=== PATIENT | male | born 1955 | race Caucasian/White ===

== ENCOUNTER 2017-08-02 12:08 | Emergency (ER) | payer OTHER ==
[~2017-08-02] VITALS: Ht 180.3 cm; Wt 115.0 kg
[2017-08-02 12:26] VITALS: Ht 180.3 cm; Wt 115.0 kg
[2017-08-02] MEDS ORDERED: KETOROLAC 30 MG INJ IV STA (14:44)
[2017-08-02] MEDS ORDERED: CIPROFLOXACIN 500 MG TAB PO ONE (15:00)
[2017-08-02] MEDS ORDERED: CIPR500T4 PO (17:29)
[2017-08-02 18:37] VITALS: BP 139/70; PULSE 77; RESP 16; TEMP 98.1
--- NOTE | 2017-08-02 22:22 | ERD ---
ER Documentation Chief Complaint Chief Complaint HAS A DAVENPORT CATHETER AND HAS SEEN BLOOD IN THE URINE COLLECTION BAG HPI 62-year-old male patient with a past medical history of diabetes and hypertension and Parkinson's disease presents to the ED complaining of a Davenport catheter problem. Reports that he has some blood clots in his Davenport catheter and is unable to urinate. States that he is here for an irrigation. States that he was seen at [facility] for the same symptoms a few days ago. States that he has some hematuria. Reports that he has an appointment to see a urologist on August 30, 2017 for further evaluation and treatment. Denies any chest pain, shortness of breath, nausea, vomiting, diarrhea, abdominal pain , or, chills. Denies any testicular pain, penile discharge. ROS All systems reviewed and are negative except as per history of present illness. Medications Home Meds Active Scripts Ciprofloxacin Hcl* (Ciprofloxacin Hcl*) 500 Mg Tablet, 500 MG PO BID for 10 Days , TAB Prov:MELISSA RAMAN PA-C 08/02/17 Allergies Allergies: Coded Allergies: No Known Allergy (Unverified , 08/02/17) PMhx/Soc History of Surgery: Yes (APPENDECTOMY) Hx Miscellaneous Medical Probl: Yes (HTN, DM, PROSTATE) Hx Alcohol Use: No Hx Substance Use: No Hx Tobacco Use: No Smoking Status: Never smoker Physical Exam Vitals Vital Signs Date Time Temp Pulse Resp B/P Pulse Ox O2 Delivery O2 Flow Rate FiO2 08/02/17 18:37 98.1 77 16 139/70 100 Room Air 08/02/17 12:26 98.5 82 18 117/60 96 Physical Exam Const: [id number], well-nourished. In no acute distress. Head: Atraumatic, normocephalic Eyes: Normal Conjunctiva without injection. No purulent discharge. ENT: Normal external ear, nose. Moist oropharynx without tonsillar exudates. Non -erythematous pharynx. Uvula midline. No drooling. No trismus. Neck: No cervical midline tenderness. Full range of motion. No meningismus. No cervical lymphadenopathy. No JVD. Resp: Clear to auscultation bilaterally. No wheezing, rhonchi, rales, or crackles. No accessory muscle use. No retractions. Cardio: Regular rate and rhythm. No murmurs, rubs or gallops. Abd: Soft, nontender, non distended. Normal bowel sounds. No palpable masses. No rebound tenderness. No guarding. Negative McBurney's point. Negative psoas sign. Negative obturator sign. : Circumcised penis with a Davenport catheter. No tenderness palpation of the bilateral scrotum. No erythema or edema. No warmth to touch. Hematuria noted in the Davenport bag. Skin: No petechiae or rashes Back: No midline tenderness. No CVA tenderness. Ext: No cyanosis, or edema. Neur: Awake and alert. Normal gait. Normal coordination. Psych: Normal Mood and Affect Results 24 hrs Laboratory Tests Test 08/02/17 15:15 White Blood Count 12.010^3/ul Red Blood Count 3.7010^6/ul Hemoglobin 11.5g/dl Hematocrit 35.3% Mean Corpuscular Volume 95.4fl Mean Corpuscular Hemoglobin 31.1pg Mean Corpuscular Hemoglobin Concent 32.6g/dl Red Cell Distribution Width 12.7% Platelet Count 64830^3/UL Mean Platelet Volume 9.9fl Neutrophils % 71.1% Lymphocytes % 17.5% Monocytes % 9.5% Eosinophils % 1.2% Basophils % 0.2% Nucleated Red Blood Cells % 0.0/100WBC Neutrophils # 8.510^3/ul Lymphocytes # 2.110^3/ul Monocytes # 1.110^3/ul Eosinophils # 0.210^3/ul Basophils # 0.010^3/ul Nucleated Red Blood Cells # 0.010^3/ul Sodium Level 141mmol/L Potassium Level 4.2mmol/L Chloride Level 106mmol/L Carbon Dioxide Level 28mmol/L Anion Gap 11 Blood Urea Nitrogen 17mg/dl Creatinine 0.98mg/dl Glucose Level 110mg/dl Calcium Level 9.1mg/dl Current Medications Medications (Trade) Dose Ordered Sig/Nadya Route PRN Reason Start Time Stop Time Status Last Admin Dose Admin Ketorolac Tromethamine (Toradol) 30 mg ONCE STAT IV 08/02/17 14:44 08/02/17 14:47 DC 08/02/17 15:23 Ciprofloxacin (Cipro) 500 mg ONCE ONCE PO 08/02/17 15:00 08/02/17 15:01 DC 08/02/17 15:24 Procedures/MDM 62-year-old male patient with a past medical history of hypertension, diabetes presents to the ED complaining of a Davenport catheter problem. Patient is afebrile and nontoxic-appearing. Patient has normal vital signs. This was discussed with my supervising physician, Dr. Hopper who stated that we can proceed with ordering a urine culture, CBC, BMP. Patient will be treated for urinary tract infection with ciprofloxacin 500 mg here in the ED as well as an outpatient basis for 10 days. Patient was given Toradol here in the ED with improvement of his pain. Patient's Davenport catheter has been irrigated without difficulty. Davenport was just changed by Jimenez a few days ago. CBC: No leukocytosis. No e/o of systemic infection. No e/o anemia. BMP: No e/o severe acidosis, alkalosis, renal failure, diabetic ketoacidosis Low suspicion for testicular torsion, gastritis, GERD, peptic ulcer disease, cholecystitis, choledocholithiasis, cholangitis, pancreatitis, appendicitis, bowel obstruction, ileus, volvulus, nephrolithiasis, pyelonephritis, hepatitis, perforated viscus, diverticulitis, abdominal hernia, acute abdomen, mesenteric ischemia or other emergent conditions. call worker person helped set up patient with home health nurse however patient refused for home health care for Davenport catheter care. Discharge medications: Ciprofloxacin Follow up with primary care physician in 1-2 days. Strictly instructed patient to follow up with urologist on 08/30/17. Instructed patient to return to the ED sooner for any worsening symptoms. Patient's questions were answered. Patient understood and agreed with discharge plan. Patient discharged stable. Departure Diagnosis: Primary Impression: Davenport catheter in place Condition: Stable Patient Instructions: Urinary Tract Infections in Men, Davenport Catheter, Care [facility] Usted se ramirez hecho un examen mdico de control que le indica que no est en cristiano condicin que requiera tratamiento urgente en el Departamento de Emergencia. Un estudio ms profundo y el tratamiento de carlos condicin pueden esperar sin ningn riesgo hasta que usted sea atendida/o en el consultorio de carlos mdico o cristiano cl ami. Es responsabilidad suya arreglar cristiano kingsley para el seguimiento del alisa. MANEJO DE CONDICIONES NO URGENTES EN EL FUTURO 1) Si usted tiene un mdico de atencin primaria: Usted debera llamar a carlos mdico de atencin primaria antes de venir al departamento de emergencia. Despus de las horas de consultorio, carlos doctor o carlos asociado/a est disponible por telfono. El mdico o enfermero de lul en el servicio telefnico puede asesorarle por etelvina medio para atender el problema, o alisa contrario se puede programar cristiano kingsley. 2) Si usted no tiene un mdico de atencin primaria: Llame al mdico o clnica de referencia que aparece abajo anna las horas de consultorio para hacer cristiano kingsley para que le vean. CLINICAS: [facility] [phone] [facility] [phone] [facility] [phone] [facility]. [facility] [phone] [address] [facility]. [facility] [phone] [address] [facility]. [phone] [address] [facility]. [facility] () Usted se ramirez hecho un examen mdico de control que le indica que no est en cristiano condicin que requiera tratamiento urgente en el Departamento de Emergencia. Un estudio ms profundo y el tratamiento de carlos condicin pueden esperar sin ningn riesgo hasta que usted sea atendida/o en el consultorio de carlos mdico o cristiano cl ami. Es responsabilidad suya arreglar cristiano kingsley para el seguimiento del alisa. MANEJO DE CONDICIONES NO URGENTES EN EL FUTURO 1) Si usted tiene un mdico de atencin primaria: Usted debera llamar a carlos mdico de atencin primaria antes de venir al departamento de emergencia. Despus de las horas de consultorio, carlos doctor o carlos asociado/a est disponible por telfono. El mdico o enfermero de lul en el servicio telefnico puede asesorarle por etelvina medio para atender el problema, o alisa contrario se puede programar cristiano kingsley. 2) Si usted no tiene un mdico de atencin primaria: Llame al mdico o condado institucions de referencia que aparece abajo anna las horas de consultorio para hacer cristiano kingsley para que le vean. SI USTED NO PUEDE PAGAR PARA JOEY UN MEDICO puede ir a: [facility] [address] [place] [address] [facility] [address] [place] [address] [facility] [address] [place] [address] PARA ERIN [facility] [address] [place], [place] [id number] [facility] URGENT CARE/SPECIALTIES Additional Instructions: Por favor, obtenga cristiano kingsley anterior de urlogo en los prximos 2-3 mix para obtener ms atencin y tratamiento. Tambin se le darn recursos de enfermera de summer para el cuidado de carlos catter Davenport. Complete todos teresa antibiticos para la infeccin de orina. Visite a carlos mdico maana para un EXAMEN.Regrese a estas instalaciones si no se mejora jasmin esperbamos o jasmin le dijimos. MELISSA RAMAN PA-C Aug 02, 2017 22:22 MELISSA RAMAN PA-C Aug 02, 2017 22:22
--- NOTE | 2017-08-02 22:22 | ERD ---
ER Documentation Chief Complaint Chief Complaint HAS A DAVENPORT CATHETER AND HAS SEEN BLOOD IN THE URINE COLLECTION BAG HPI 62-year-old male patient with a past medical history of diabetes and hypertension and Parkinson's disease presents to the ED complaining of a Davenport catheter problem. Reports that he has some blood clots in his Davenport catheter and is unable to urinate. States that he is here for an irrigation. States that he was seen at [facility] for the same symptoms a few days ago. States that he has some hematuria. Reports that he has an appointment to see a urologist on August 30, 2017 for further evaluation and treatment. Denies any chest pain, shortness of breath, nausea, vomiting, diarrhea, abdominal pain , or, chills. Denies any testicular pain, penile discharge. ROS All systems reviewed and are negative except as per history of present illness. Medications Home Meds Active Scripts Ciprofloxacin Hcl* (Ciprofloxacin Hcl*) 500 Mg Tablet, 500 MG PO BID for 10 Days , TAB Prov:MELISSA RAMAN PA-C 08/02/17 Allergies Allergies: Coded Allergies: No Known Allergy (Unverified , 08/02/17) PMhx/Soc History of Surgery: Yes (APPENDECTOMY) Hx Miscellaneous Medical Probl: Yes (HTN, DM, PROSTATE) Hx Alcohol Use: No Hx Substance Use: No Hx Tobacco Use: No Smoking Status: Never smoker Physical Exam Vitals Vital Signs Date Time Temp Pulse Resp B/P Pulse Ox O2 Delivery O2 Flow Rate FiO2 08/02/17 18:37 98.1 77 16 139/70 100 Room Air 08/02/17 12:26 98.5 82 18 117/60 96 Physical Exam Const: [id number], well-nourished. In no acute distress. Head: Atraumatic, normocephalic Eyes: Normal Conjunctiva without injection. No purulent discharge. ENT: Normal external ear, nose. Moist oropharynx without tonsillar exudates. Non -erythematous pharynx. Uvula midline. No drooling. No trismus. Neck: No cervical midline tenderness. Full range of motion. No meningismus. No cervical lymphadenopathy. No JVD. Resp: Clear to auscultation bilaterally. No wheezing, rhonchi, rales, or crackles. No accessory muscle use. No retractions. Cardio: Regular rate and rhythm. No murmurs, rubs or gallops. Abd: Soft, nontender, non distended. Normal bowel sounds. No palpable masses. No rebound tenderness. No guarding. Negative McBurney's point. Negative psoas sign. Negative obturator sign. : Circumcised penis with a Davenport catheter. No tenderness palpation of the bilateral scrotum. No erythema or edema. No warmth to touch. Hematuria noted in the Davenport bag. Skin: No petechiae or rashes Back: No midline tenderness. No CVA tenderness. Ext: No cyanosis, or edema. Neur: Awake and alert. Normal gait. Normal coordination. Psych: Normal Mood and Affect Results 24 hrs Laboratory Tests Test 08/02/17 15:15 White Blood Count 12.010^3/ul Red Blood Count 3.7010^6/ul Hemoglobin 11.5g/dl Hematocrit 35.3% Mean Corpuscular Volume 95.4fl Mean Corpuscular Hemoglobin 31.1pg Mean Corpuscular Hemoglobin Concent 32.6g/dl Red Cell Distribution Width 12.7% Platelet Count 64106^3/UL Mean Platelet Volume 9.9fl Neutrophils % 71.1% Lymphocytes % 17.5% Monocytes % 9.5% Eosinophils % 1.2% Basophils % 0.2% Nucleated Red Blood Cells % 0.0/100WBC Neutrophils # 8.510^3/ul Lymphocytes # 2.110^3/ul Monocytes # 1.110^3/ul Eosinophils # 0.210^3/ul Basophils # 0.010^3/ul Nucleated Red Blood Cells # 0.010^3/ul Sodium Level 141mmol/L Potassium Level 4.2mmol/L Chloride Level 106mmol/L Carbon Dioxide Level 28mmol/L Anion Gap 11 Blood Urea Nitrogen 17mg/dl Creatinine 0.98mg/dl Glucose Level 110mg/dl Calcium Level 9.1mg/dl Current Medications Medications (Trade) Dose Ordered Sig/Nadya Route PRN Reason Start Time Stop Time Status Last Admin Dose Admin Ketorolac Tromethamine (Toradol) 30 mg ONCE STAT IV 08/02/17 14:44 08/02/17 14:47 DC 08/02/17 15:23 Ciprofloxacin (Cipro) 500 mg ONCE ONCE PO 08/02/17 15:00 08/02/17 15:01 DC 08/02/17 15:24 Procedures/MDM 62-year-old male patient with a past medical history of hypertension, diabetes presents to the ED complaining of a Davenport catheter problem. Patient is afebrile and nontoxic-appearing. Patient has normal vital signs. This was discussed with my supervising physician, Dr. Hopper who stated that we can proceed with ordering a urine culture, CBC, BMP. Patient will be treated for urinary tract infection with ciprofloxacin 500 mg here in the ED as well as an outpatient basis for 10 days. Patient was given Toradol here in the ED with improvement of his pain. Patient's Davenport catheter has been irrigated without difficulty. Davenport was just changed by Jimenez a few days ago. CBC: No leukocytosis. No e/o of systemic infection. No e/o anemia. BMP: No e/o severe acidosis, alkalosis, renal failure, diabetic ketoacidosis Low suspicion for testicular torsion, gastritis, GERD, peptic ulcer disease, cholecystitis, choledocholithiasis, cholangitis, pancreatitis, appendicitis, bowel obstruction, ileus, volvulus, nephrolithiasis, pyelonephritis, hepatitis, perforated viscus, diverticulitis, abdominal hernia, acute abdomen, mesenteric ischemia or other emergent conditions. oncology social worker helped set up patient with home health nurse however patient refused for home health care for Davenport catheter care. Discharge medications: Ciprofloxacin Follow up with primary care physician in 1-2 days. Strictly instructed patient to follow up with urologist on 08/30/17. Instructed patient to return to the ED sooner for any worsening symptoms. Patient's questions were answered. Patient understood and agreed with discharge plan. Patient discharged stable. Departure Diagnosis: Primary Impression: Davenport catheter in place Condition: Stable Patient Instructions: Urinary Tract Infections in Men, Davenport Catheter, Care Referrals: [facility] Usted se ramirez hecho un examen mdico de control que le indica que no est en cristiano condicin que requiera tratamiento urgente en el Departamento de Emergencia. Un estudio ms profundo y el tratamiento de carlos condicin pueden esperar sin ningn riesgo hasta que usted sea atendida/o en el consultorio de carlos mdico o cristiano cl ami. Es responsabilidad suya arreglar cristiano kingsley para el seguimiento del alisa. MANEJO DE CONDICIONES NO URGENTES EN EL FUTURO 1) Si usted tiene un mdico de atencin primaria: Usted debera llamar a carlos mdico de atencin primaria antes de venir al departamento de emergencia. Despus de las horas de consultorio, carlos doctor o carlos asociado/a est disponible por telfono. El mdico o enfermero de lul en el servicio telefnico puede asesorarle por etelvina medio para atender el problema, o alisa contrario se puede programar cristiano kingsley. 2) Si usted no tiene un mdico de atencin primaria: Llame al mdico o clnica de referencia que aparece abajo anna las horas de consultorio para hacer cristiano kingsley para que le vean. CLINICAS: [facility] [phone] [facility] [phone] [facility] [phone] [address] [facility] [phone] [address] [facility]. [facility] [phone] [address] [facility]. [phone] [facility]. [facility] () Usted se ramirez hecho un examen mdico de control que le indica que no est en cristiano condicin que requiera tratamiento urgente en el Departamento de Emergencia. Un estudio ms profundo y el tratamiento de carlos condicin pueden esperar sin ningn riesgo hasta que usted sea atendida/o en el consultorio de carlos mdico o cristiano cl ami. Es responsabilidad suya arreglar cristiano kingsley para el seguimiento del alisa. MANEJO DE CONDICIONES NO URGENTES EN EL FUTURO 1) Si usted tiene un mdico de atencin primaria: Usted debera llamar a carlos mdico de atencin primaria antes de venir al departamento de emergencia. Despus de las horas de consultorio, carlos doctor o carlos asociado/a est disponible por telfono. El mdico o enfermero de lul en el servicio telefnico puede asesorarle por etelvina medio para atender el problema, o alisa contrario se puede programar cristiano kingsley. 2) Si usted no tiene un mdico de atencin primaria: Llame al mdico o condado institucions de referencia que aparece abajo anna las horas de consultorio para hacer cristiano kingsley para que le vean. SI USTED NO PUEDE PAGAR PARA JOEY UN MEDICO puede ir a: [facility] [address] [place] [address] [facility] [address] [place] [address] [facility] [address] [place] [address] PARA ERIN [facility] [address] [place], [place] [id number] [facility] U[facility]ENT CARE/SPECIALTIES Additional Instructions: Por favor, obtenga cristiano kingsley anterior de urlogo en los prximos 2-3 mix para obtener ms atencin y tratamiento. Tambin se le darn recursos de enfermera de summer para el cuidado de carlos catter Davenport. Complete todos teresa antibiticos para la infeccin de orina. Visite a carlos mdico maana para un EXAMEN.Regrese a estas instalaciones si no se mejora jasmin esperbamos o jasmin le dijimos. MELISSA RAMAN PA-C Aug 02, 2017 22:22 MELISSA RAMAN PA-C Aug 02, 2017 22:22
--- NOTE | 2017-08-02 22:22 | ERD ---
ER Documentation Chief Complaint Chief Complaint HAS A DAVENPORT CATHETER AND HAS SEEN BLOOD IN THE URINE COLLECTION BAG HPI 62-year-old male patient with a past medical history of diabetes and hypertension and Parkinson's disease presents to the ED complaining of a Davenport catheter problem. Reports that he has some blood clots in his Davenport catheter and is unable to urinate. States that he is here for an irrigation. States that he was seen at [facility] for the same symptoms a few days ago. States that he has some hematuria. Reports that he has an appointment to see a urologist on August 30, 2017 for further evaluation and treatment. Denies any chest pain, shortness of breath, nausea, vomiting, diarrhea, abdominal pain , or, chills. Denies any testicular pain, penile discharge. ROS All systems reviewed and are negative except as per history of present illness. Medications Home Meds Active Scripts Ciprofloxacin Hcl* (Ciprofloxacin Hcl*) 500 Mg Tablet, 500 MG PO BID for 10 Days , TAB Prov:MELISSA RAMAN PA-C 08/02/17 Allergies Allergies: Coded Allergies: No Known Allergy (Unverified , 08/02/17) PMhx/Soc History of Surgery: Yes (APPENDECTOMY) Hx Miscellaneous Medical Probl: Yes (HTN, DM, PROSTATE) Hx Alcohol Use: No Hx Substance Use: No Hx Tobacco Use: No Smoking Status: Never smoker Physical Exam Vitals Vital Signs Date Time Temp Pulse Resp B/P Pulse Ox O2 Delivery O2 Flow Rate FiO2 08/02/17 18:37 98.1 77 16 139/70 100 Room Air 08/02/17 12:26 98.5 82 18 117/60 96 Physical Exam Const: [id number]-zjj-bvyerfqps, well-nourished. In no acute distress. Head: Atraumatic, normocephalic Eyes: Normal Conjunctiva without injection. No purulent discharge. ENT: Normal external ear, nose. Moist oropharynx without tonsillar exudates. Non -erythematous pharynx. Uvula midline. No drooling. No trismus. Neck: No cervical midline tenderness. Full range of motion. No meningismus. No cervical lymphadenopathy. No JVD. Resp: Clear to auscultation bilaterally. No wheezing, rhonchi, rales, or crackles. No accessory muscle use. No retractions. Cardio: Regular rate and rhythm. No murmurs, rubs or gallops. Abd: Soft, nontender, non distended. Normal bowel sounds. No palpable masses. No rebound tenderness. No guarding. Negative McBurney's point. Negative psoas sign. Negative obturator sign. : Circumcised penis with a Davenport catheter. No tenderness palpation of the bilateral scrotum. No erythema or edema. No warmth to touch. Hematuria noted in the Davenport bag. Skin: No petechiae or rashes Back: No midline tenderness. No CVA tenderness. Ext: No cyanosis, or edema. Neur: Awake and alert. Normal gait. Normal coordination. Psych: Normal Mood and Affect Results 24 hrs Laboratory Tests Test 08/02/17 15:15 White Blood Count 12.010^3/ul Red Blood Count 3.7010^6/ul Hemoglobin 11.5g/dl Hematocrit 35.3% Mean Corpuscular Volume 95.4fl Mean Corpuscular Hemoglobin 31.1pg Mean Corpuscular Hemoglobin Concent 32.6g/dl Red Cell Distribution Width 12.7% Platelet Count 84816^3/UL Mean Platelet Volume 9.9fl Neutrophils % 71.1% Lymphocytes % 17.5% Monocytes % 9.5% Eosinophils % 1.2% Basophils % 0.2% Nucleated Red Blood Cells % 0.0/100WBC Neutrophils # 8.510^3/ul Lymphocytes # 2.110^3/ul Monocytes # 1.110^3/ul Eosinophils # 0.210^3/ul Basophils # 0.010^3/ul Nucleated Red Blood Cells # 0.010^3/ul Sodium Level 141mmol/L Potassium Level 4.2mmol/L Chloride Level 106mmol/L Carbon Dioxide Level 28mmol/L Anion Gap 11 Blood Urea Nitrogen 17mg/dl Creatinine 0.98mg/dl Glucose Level 110mg/dl Calcium Level 9.1mg/dl Current Medications Medications (Trade) Dose Ordered Sig/Nadya Route PRN Reason Start Time Stop Time Status Last Admin Dose Admin Ketorolac Tromethamine (Toradol) 30 mg ONCE STAT IV 08/02/17 14:44 08/02/17 14:47 DC 08/02/17 15:23 Ciprofloxacin (Cipro) 500 mg ONCE ONCE PO 08/02/17 15:00 08/02/17 15:01 DC 08/02/17 15:24 Procedures/MDM 62-year-old male patient with a past medical history of hypertension, diabetes presents to the ED complaining of a Davenport catheter problem. Patient is afebrile and nontoxic-appearing. Patient has normal vital signs. This was discussed with my supervising physician, Dr. Hopper who stated that we can proceed with ordering a urine culture, CBC, BMP. Patient will be treated for urinary tract infection with ciprofloxacin 500 mg here in the ED as well as an outpatient basis for 10 days. Patient was given Toradol here in the ED with improvement of his pain. Patient's Davenport catheter has been irrigated without difficulty. Davenport was just changed by Jimenez a few days ago. CBC: No leukocytosis. No e/o of systemic infection. No e/o anemia. BMP: No e/o severe acidosis, alkalosis, renal failure, diabetic ketoacidosis Low suspicion for testicular torsion, gastritis, GERD, peptic ulcer disease, cholecystitis, choledocholithiasis, cholangitis, pancreatitis, appendicitis, bowel obstruction, ileus, volvulus, nephrolithiasis, pyelonephritis, hepatitis, perforated viscus, diverticulitis, abdominal hernia, acute abdomen, mesenteric ischemia or other emergent conditions. plate worker helped set up patient with home health nurse however patient refused for home health care for Davenport catheter care. Discharge medications: Ciprofloxacin Follow up with primary care physician in 1-2 days. Strictly instructed patient to follow up with urologist on 08/30/17. Instructed patient to return to the ED sooner for any worsening symptoms. Patient's questions were answered. Patient understood and agreed with discharge plan. Patient discharged stable. Departure Diagnosis: Primary Impression: Davenport catheter in place Condition: Stable Patient Instructions: Urinary Tract Infections in Men, Davenport Catheter, Care [facility] Usted se ramirez hecho un examen mdico de control que le indica que no est en cristiano condicin que requiera tratamiento urgente en el Departamento de Emergencia. Un estudio ms profundo y el tratamiento de carlos condicin pueden esperar sin ningn riesgo hasta que usted sea atendida/o en el consultorio de carlos mdico o cristiano cl ami. Es responsabilidad suya arreglar cristiano kingsley para el seguimiento del alisa. MANEJO DE CONDICIONES NO URGENTES EN EL FUTURO 1) Si usted tiene un mdico de atencin primaria: Usted debera llamar a carlos mdico de atencin primaria antes de venir al departamento de emergencia. Despus de las horas de consultorio, carlos doctor o carlos asociado/a est disponible por telfono. El mdico o enfermero de lul en el servicio telefnico puede asesorarle por etelvina medio para atender el problema, o alisa contrario se puede programar cristiano kingsley. 2) Si usted no tiene un mdico de atencin primaria: Llame al mdico o clnica de referencia que aparece abajo anna las horas de consultorio para hacer cristiano kingsley para que le vean. CLINICAS: [facility] [phone] [facility] [phone] [facility] [phone] [address] [facility]. [facility] [phone] [address] [facility]. [facility] [phone] [address] [facility]. [phone] [address] [facility]. [facility] () Usted se ramirez hecho un examen mdico de control que le indica que no est en cristiano condicin que requiera tratamiento urgente en el Departamento de Emergencia. Un estudio ms profundo y el tratamiento de carlos condicin pueden esperar sin ningn riesgo hasta que usted sea atendida/o en el consultorio de carlos mdico o cristiano cl ami. Es responsabilidad suya arreglar cristiano kingsley para el seguimiento del alisa. MANEJO DE CONDICIONES NO URGENTES EN EL FUTURO 1) Si usted tiene un mdico de atencin primaria: Usted debera llamar a carlos mdico de atencin primaria antes de venir al departamento de emergencia. Despus de las horas de consultorio, carlos doctor o carlos asociado/a est disponible por telfono. El mdico o enfermero de lul en el servicio telefnico puede asesorarle por etelvina medio para atender el problema, o alisa contrario se puede programar cristiano kingsley. 2) Si usted no tiene un mdico de atencin primaria: Llame al mdico o condado institucions de referencia que aparece abajo anna las horas de consultorio para hacer cristiano kingsley para que le vean. SI USTED NO PUEDE PAGAR PARA JOEY UN MEDICO puede ir a: [facility] [address] [place] [address] [facility] [address] [place] [address] [facility] [address] [place] [address] PARA [facility] [address] [place], [place] [id number] [facility] URGENT CARE/SPECIALTIES Additional Instructions: Por favor, obtenga cristiano kingsley anterior de urlogo en los prximos 2-3 mix para obtener ms atencin y tratamiento. Tambin se le darn recursos de enfermera de summer para el cuidado de carlos catter Davenport. Complete todos teresa antibiticos para la infeccin de orina. Visite a carlos mdico maana para un EXAMEN.Regrese a estas instalaciones si no se mejora jasmin esperbamos o jasmin le dijimos. MELISSA RAMAN PA-C Aug 02, 2017 22:22 MELISSA RAMAN PA-C Aug 02, 2017 22:22
== END 2017-08-02 18:20 | disposition home or self-care (01) ==
LOC: FTE 12:08
DX: R33.9 Retention of urine, unspecified (principal); I10 Essential (primary) hypertension; E11.9 Type 2 diabetes mellitus without complications; G20 Parkinson's disease; Z46.6 Encounter for fitting and adjustment of urinary device
CPT/HCPCS: 36415; 80048; 85025; 87086; 96374; J1885; Z7502; Z7610

== ENCOUNTER 2017-12-19 19:07 | Emergency (ER) | END 2017-12-19 21:30 | disposition home or self-care (01) ==

== ENCOUNTER 2018-01-29 16:19 | Emergency (ER) | END 2018-01-29 20:27 | disposition home or self-care (01) ==

== ENCOUNTER 2018-03-06 17:26 | Emergency (ER) | END 2018-03-06 22:57 | disposition home or self-care (01) ==

== ENCOUNTER 2018-10-18 18:41 | Emergency (ER) | payer OTHER ==
[~2018-10-18] VITALS: Ht 175.3 cm; Wt 122.4 kg
[~2018-10-18 18:41] MED LIST: ACET500C5 PO; ALBU8.5H8 INH; AMLO-147 PO; ATEN-51 PO; AZIT250T PO; BENZ-6 PO; CEPH-443 PO; CETI10CA PO; CIPR500T4 PO; IBUP-1542 PO; METF500T24 PO; NITR-58 PO
[2018-10-18 19:22] VITALS: BP 173/83; PULSE 65; RESP 18; Ht 175.3 cm; Wt 122.4 kg
[2018-10-18] MEDS ORDERED: BACITRACIN 0.9 GM OINT TOP ONE (23:00)
[2018-10-18] MEDS ORDERED: DIPHTH/TET/ACEL PERTUSS (ADULT) 0.5 ML VIAL IM* ONE (23:00)
[2018-10-18] MEDS ORDERED: METR500T PO (23:59)
[2018-10-18] MEDS ORDERED: SULF1TAB31 PO (23:59)
--- NOTE | 2018-10-19 02:07 | ERD ---
ER Documentation Chief Complaint Chief Complaint pinpoint bite today by dog on his R lower leg near the ankle HPI 63-year-old male patient with a past medical history of prediabetes, hypert ension presents to the ED complaining of a dog bite that occurred on his right lower leg. Patient reports that it is slightly painful. Reports that he still able to walk without any difficulty. States that he was told that the dog was updated with his rabies vaccine. Denies any loss of sensation, loss of range of motion, increased redness, swelling, fever, chills. ROS All systems reviewed and are negative except as per history of present illness. Medications Home Meds Active Scripts Metronidazole* (Flagyl*) 500 Mg Tablet, 500 MG PO TID for 10 Days, TAB Prov:MELISSA RAMAN PA-C 10/18/18 Sulfamethoxazole/Trimethoprim* (Bactrim Ds* Tablet) 1 Each Tablet, 1 TAB PO DAILY for 10 Days, TAB Prov:MELISSA RAMAN PA-C 10/18/18 Nitrofurantoin Monohyd Macrocr* (Macrobid*) 100 Mg Capsr, 100 MG PO BID for 14 Days, CAP Prov:RADHA BOATENG MD 03/06/18 Cephalexin* (Keflex*) 500 Mg Capsule, 500 MG PO QID for 14 Days, CAP Prov:DAIANA JARA MD 01/29/18 Ibuprofen* (Motrin*) 600 Mg Tab, 600 MG PO Q6H PRN for PAIN AND OR ELEVATED TEMP, #30 TAB Prov:ILSA BARBA NP 12/19/17 Acetaminophen* (Tylophen*) 500 Mg Capsule, 1 CAP PO Q6H PRN for PAIN AND OR ELEVATED TEMP, #20 CAP Prov:ILSA BARBA NP 12/19/17 Albuterol Sulfate* (Proair HFA*) 8.5 Gm Hfa.aer.ad, 2 PUFF INH Q4H PRN for WHEEZING AND SOB, #1 INHALER Prov:ILSA BARBA NP 12/19/17 Cetirizine Hcl* (Zyrtec*) 10 Mg Capsule, 10 MG PO DAILY, #30 TAB.CHEW Prov:ILSA BARBA NP 12/19/17 Azithromycin* (Zithromax*) 250 Mg Tablet, 250 MG PO DAILY for 4 Days, TAB Prov:EMILY BARBALizeth Bauman MAINTENANCE DEPARTMENT MANAGER 12/19/17 Benzonatate* (Tessalon Perle*) 100 Mg Capsule, 100 MG PO Q8H PRN for COUGH, #20 CAP Prov:ILSA BARBA DANDRE Bauman MAINTENANCE DEPARTMENT MANAGER 12/19/17 Ciprofloxacin Hcl* (Ciprofloxacin Hcl*) 500 Mg Tablet, 500 MG PO BID for 10 Days, TAB Prov:MELISSA RAMAN PA-C 08/02/17 Reported Medications Metformin Hcl* (Metformin Hcl*) Unknown Strength Tablet, PO WITH BREAKFAST DINNE, #60 TAB 12/19/17 Atenolol* (Atenolol*) Unknown Strength Tablet, PO DAILY, #30 TAB 12/19/17 Amlodipine Besylate* (Amlodipine Besylate*) Unknown Strength Tablet, PO DAILY, #30 TAB 12/19/17 Allergies Allergies: Coded Allergies: Iodine and Iodide Containing Produc (Verified Allergy, Unknown, 10/18/18) Penicillins (Verified Allergy, Unknown, 10/18/18) PMhx/Soc History of Surgery: Yes (APPENDECTOMY) Hx Cardiac Disorders: Yes (HTN, hyperlipidemia) Hx Miscellaneous Medical Probl: Yes (pre-DM, PROSTATE, Kidney stones) Hx Alcohol Use: No Hx Substance Use: No Hx Tobacco Use: No Smoking Status: Never smoker Physical Exam Vitals Vital Signs Date Temp Pulse Resp B/P (MAP) Pulse Ox O2 O2 Flow FiO2 Time Delivery Rate 10/18/18 98.4 65 18 173/83 95 19:22 (113) Physical Exam Const: [id number], well-nourished. In no acute distress. Head: Atraumatic, normocephalic Eyes: Normal Conjunctiva without injection ENT: Normal external ear, nose and mouth. Neck: Full range of motion. No meningismus. Resp: Clear to auscultation bilaterally. No wheezing, rhonchi, rales, or crackles. No accessory muscle use. No retractions. Cardio: Regular rate and rhythm, no murmurs Skin: No petechiae or rashes Back: No midline tenderness. No CVA tenderness. Ext: No cyanosis, or edema. Cap refill less than 2 seconds. Distal pulses intact bilaterally. Pinpoint lesion noted on the right lower extremity. No edema noted. Slight erythema noted. No ecchymosis. No fluctuance or induration. Full range of motion of bilateral lower extremities. Neur: Awake and alert. Normal gait and coordination. Muscle strength 5/5. Sensation intact bilaterally. Psych: Normal Mood and Affect Results 24 hrs Current Medications Medications Dose Sig/Nadya Start Time Status Last (Trade) Ordered Route PRN Stop Time Admin Dose Reason Admin Bacitracin 1 applic ONCE ONCE 10/18/18 DC 10/18/18 (Bacitracin TOP 23:00 10/18/18 22:58 Oint (Ud)) 23:01 Diphtheria/ 0.5 ml ONCE ONCE 10/18/18 DC 10/18/18 Tetanus/Acell IM* 23:00 10/18/18 22:58 Pertussis 23:01 (Adacel) Procedures/MDM 63-year-old male patient with no significant past medical history presents to the ED complaining of diabetes, hypertension. Patient is afebrile and nontoxic- appearing. Patient's blood pressure is 173/83. Blood Pressure Assessment: Patient's blood pressure was elevated (>120/80) but appears stable without evidence of hypertension emergency or urgency. The patient was counseled about the risks of hypertension and urged to pursue outpatient monitoring and therapy within a week with their primary care physician. Wound care given to patient. Patient's wound clean with normal saline. Patient sustained a punctate dog bite. Since patient is allergic to penicillin, discussed with Star, pharmacist and patient can be placed on Bactrim to cover for Pasteurella as well as metronidazole for anaerobic coverage. Patient is appropriate for outpatient management. Patient have a wound check in 2 days. Low suspicion for anaphylaxis, scabies, SJS/TEN, TSS, Lyme's Disease, syphilis, RMSF, shingles, disseminated gonorrhea chlamydia, DIC, TTP, ITP, erythema multiforme, sepsis, cellulitis, necrotizing fasciitis, gangrene, meningococcemia, allergic contact dermatitis, urticaria, eczema, tinea infection, or other emergent conditions. Diagnosis: Dog bite Discharge medications: Flagyl, Bactrim Follow up with primary care physician in 1-2 days. Instructed patient to return to the ED sooner for any worsening symptoms. Patient's questions were answered. Patient is hemodynamically stable. Patient understood and agreed with discharge plan. Patient discharged stable. Disclaimer: Inadvertent spelling and grammatical errors are likely due to EHR/dictation software use and do not reflect on the overall quality of patient care. Also, please note that the electronic time recorded on this note does not necessarily reflect the actual time of the patient encounter. Departure Diagnosis: Primary Impression: Dog bite Encounter type: initial encounter Qualified Codes: W54.0XXA - Bitten by dog, initial encounter Condition: Stable Patient Instructions: Dog Bite Referrals: [facility] YOU HAVE RECEIVED A MEDICAL SCREENING EXAM AND THE RESULTS INDICATE THAT YOU DO NOT HAVE A CONDITION THAT REQUIRES URGENT TREATMENT IN THE EMERGENCY DEPARTMENT. FURTHER EVALUATION AND TREATMENT OF YOUR CONDITION CAN WAIT UNTIL YOU ARE SEEN IN YOUR DOCTORS OFFICE WITHIN THE NEXT 1-2 DAYS. IT IS YOUR RESPONSIBILITY TO MAKE AN APPOINTMENT FOR FOLOW-UP CARE. IF YOU HAVE A PRIMARY DOCTOR --you should call your primary doctor and schedule an appointment IF YOU DO NOT HAVE A PRIMARY DOCTOR YOU CAN CALL OUR PHYSICIAN REFERRAL HOTLINE AT IF YOU CAN NOT AFFORD TO SEE A PHYSICIAN YOU CAN CHOSE FROM THE FOLLOWING [facility] [address] [facility]. [facility] [address] [facility] [facility] [address] [facility] [address] [facility] [address] [facility]. [facility]. [address] [facility]. [facility] YOU HAVE RECEIVED A MEDICAL SCREENING EXAM AND THE RESULTS INDICATE THAT YOU DO NOT HAVE A CONDITION THAT REQUIRES URGENT TREATMENT IN THE EMERGENCY DEPARTMENT. FURTHER EVALUATION AND TREATMENT OF YOUR CONDITION CAN WAIT UNTIL YOU ARE SEEN I N YOUR DOCTORS OFFICE WITHIN THE NEXT 1-2 DAYS. IT IS YOUR RESPONSIBILITY TO MAKE AN APPOINTMENT FOR FOLOW-UP CARE. IF YOU HAVE A PRIMARY DOCTOR --you should call your primary doctor and schedule and appointment IF YOU DO NOT HAVE A PRIMARY DOCTOR YOU CAN CALL OUR PHYSICIAN REFERRAL HOTLINE AT . IF YOU CAN NOT AFFORD TO SEE A PHYSICIAN YOU CAN CHOSE FROM THE FOLLOWING [facility] INSTITUTIONS: [facility] [address] [place] [address] [facility] [address] [place] [address] [facility] [address] [place] [address] [facility] URGENT CARE/SPECIALTIES Additional Instructions: Call your primary care doctor TOMORROW for an appointment during the next 2-3 days.See the doctor sooner or return here if your condition worsens before your appointment time. Follow up in 2 days in your clinic for wound check. MELISSA RAMAN PA-C Oct 19, 2018 02:07
== END 2018-10-19 00:09 | disposition home or self-care (01) ==
LOC: FTE 18:41
DX: S81.851A Open bite, right lower leg, initial encounter (principal); I10 Essential (primary) hypertension; W54.0XXA Bitten by dog, initial encounter; Y92.9 Unspecified place or not applicable; Z23 Encounter for immunization; Z79.84 Long term (current) use of oral hypoglycemic drugs
CPT/HCPCS: 90471; 90715; Z7502; Z7610

== ENCOUNTER 2018-12-09 18:53 | Emergency (ER) | payer OTHER ==
[~2018-12-09] VITALS: Ht 175.3 cm; Wt 121.7 kg
[~2018-12-09 18:53] MED LIST changes: +METR500T PO; +SULF1TAB31 PO
[2018-12-09 19:44] VITALS: Ht 175.3 cm; Wt 121.7 kg
[2018-12-10] MEDS ORDERED: CIPR500T4 PO (01:27)
--- NOTE | 2018-12-10 02:18 | ERD ---
ER Documentation Chief Complaint Chief Complaint dysuria x1 week. denies blood in urine HPI Patient is a 63-year-old male with a past medical history of Parkinson's disease, hypertension, DM type II, who presents the ER for concerns of dysuria times 1 week. Patient denies any hematuria. Patient denies any fevers or chills. Patient denies abdominal pain. Patient denies any chest pain, shortness breath, nausea, vomiting or diarrhea. Patient states he recently did have a UTI and he was taking "Munorol." ROS All systems reviewed and are negative except as per history of present illness. Medications Home Meds Active Scripts Ciprofloxacin Hcl* (Ciprofloxacin Hcl*) 500 Mg Tablet, 500 MG PO BID for 10 Days, TAB Prov:VINCE JACOBSON PA-C 12/10/18 Metronidazole* (Flagyl*) 500 Mg Tablet, 500 MG PO TID for 10 Days, TAB Prov:MELISSA RAMAN PA-C 10/18/18 Sulfamethoxazole/Trimethoprim* (Bactrim Ds* Tablet) 1 Each Tablet, 1 TAB PO YONATHAN LY for 10 Days, TAB Prov:MELISSA RAMAN PA-C 10/18/18 Nitrofurantoin Monohyd Macrocr* (Macrobid*) 100 Mg Capsr, 100 MG PO BID for 14 Days, CAP Prov:RADHA BOATENG MD 03/06/18 Cephalexin* (Keflex*) 500 Mg Capsule, 500 MG PO QID for 14 Days, CAP Prov:DAIANA JARA MD 01/29/18 Ibuprofen* (Motrin*) 600 Mg Tab, 600 MG PO Q6H PRN for PAIN AND OR ELEVATED TEMP, #30 TAB Prov:ILSA BARBA NP 12/19/17 Acetaminophen* (Tylophen*) 500 Mg Capsule, 1 CAP PO Q6H PRN for PAIN AND OR ELEVATED TEMP, #20 CAP Prov:ILSA BARBA NP 12/19/17 Albuterol Sulfate* (Proair HFA*) 8.5 Gm Hfa.aer.ad, 2 PUFF INH Q4H PRN for WHEEZING AND SOB, #1 INHALER Prov:ILSA BARBA NP 12/19/17 Cetirizine Hcl* (Zyrtec*) 10 Mg Capsule, 10 MG PO DAILY, #30 TAB.CHEW Prov:ILSA BARBA MAE [employer] 12/19/17 Azithromycin* (Zithromax*) 250 Mg Tablet, 250 MG PO DAILY for 4 Days, TAB Prov:ILSA BARBA. [employer] SERV[employer]OCIATE 12/19/17 Benzonatate* (Tessalon Perle*) 100 Mg Capsule, 100 MG PO Q8H PRN for COUGH, #20 CAP Prov:ILSA BARBA DANDRE Montelongo. [employer] SERVICE ASSOCIATE 12/19/17 Ciprofloxacin Hcl* (Ciprofloxacin Hcl*) 500 Mg Tablet, 500 MG PO BID for 10 Days, TAB Prov:MELISSA RAMAN PA-C 08/02/17 Reported Medications Metformin Hcl* (Metformin Hcl*) Unknown Strength Tablet, PO WITH BREAKFAST DINNE, #60 TAB 12/19/17 Atenolol* (Atenolol*) Unknown Strength Tablet, PO DAILY, #30 TAB 12/19/17 Amlodipine Besylate* (Amlodipine Besylate*) Unknown Strength Tablet, PO DAILY, #30 TAB 12/19/17 Allergies Allergies: Coded Allergies: Iodine and Iodide Containing Produc (Verified Allergy, Unknown, 10/18/18) Penicillins (Verified Allergy, Unknown, 10/18/18) PMhx/Soc History of Surgery: Yes (APPENDECTOMY) Hx Cardiac Disorders: Yes (HTN, hyperlipidemia) Hx Miscellaneous Medical Probl: Yes (DM, PROSTATE, Kidney stones, parkinson's) Hx Alcohol Use: No Hx Substance Use: No Hx Tobacco Use: No Smoking Status: Never smoker FmHx Family History: No diabetes Physical Exam Vitals Vital Signs Date Temp Pulse Resp B/P (MAP) Pulse Ox O2 O2 Flow FiO2 Time Delivery Rate 12/09/18 98.0 94 16 163/74 97 19:44 (103) Physical Exam GENERAL: Well-developed, well-nourished male. Appears in no acute distress. Speaking in full sentences. HEAD: Normocephalic, atraumatic. EYES: Pupils are equally reactive bilaterally. EOMs grossly intact. No conjunctival erythema. NECK: Supple. No meningismus. Normal range of motion of the neck. LUNG: Clear to auscultation bilaterally. No rhonchi, wheezing, rales or coarse breath sounds. HEART: Regular rate and rhythm. No murmurs, rubs or gallops. ABDOMEN: No scars, ecchymosis or rashes noted. Soft, nontender, and nondistended. Positive bowel sounds in all four quadrants. No rebound tenderness, no guarding. (-) McBurney's point tenderness. No CVA tenderness. EXTREMITIES: Equal pulses bilaterally. No peripheral clubbing, cyanosis or edema. No unilateral leg swelling. NEUROLOGIC: Alert and oriented. Moving all four extremities without any difficulty. Normal speech. Steady gait. SKIN: Normal color. Warm and dry. No rashes or lesions. Result Diagram: 12/09/187 12/09/187 Results 24 hrs Laboratory Tests Test 12/09/18 23:47 12/10/18 01:16 White Blood Count 9.9 10^3/ul Red Blood Count 4.55 10^6/ul Hemoglobin 13.6 g/dl Hematocrit 42.8 % Mean Corpuscular Volume 94.1 fl Mean Corpuscular Hemoglobin 29.9 pg Mean Corpuscular Hemoglobin Concent 31.8 g/dl Red Cell Distribution Width 12.7 % Platelet Count 311 10^3/UL Mean Platelet Volume 10.1 fl Immature Granulocytes % 0.500 % Neutrophils % 57.7 % Lymphocytes % 28.0 % Monocytes % 10.3 % Eosinophils % 3.2 % Basophils % 0.3 % Nucleated Red Blood Cells % 0.0 /100WBC Immature Granulocytes # 0.050 10^3/ul Neutrophils # 5.7 10^3/ul Lymphocytes # 2.8 10^3/ul Monocytes # 1.0 10^3/ul Eosinophils # 0.3 10^3/ul Basophils # 0.0 10^3/ul Nucleated Red Blood Cells # 0.0 10^3/ul Sodium Level 140 mmol/L Potassium Level 3.8 mmol/L Chloride Level 100 mmol/L Carbon Dioxide Level 29 mmol/L Anion Gap 11 Blood Urea Nitrogen 13 mg/dl Creatinine 0.70 mg/dl Est Glomerular Filtrat Rate mL/min > 60 mL/min Glucose Level 114 mg/dl Calcium Level 9.4 mg/dl Total Bilirubin 0.3 mg/dl Direct Bilirubin 0.00 mg/dl Indirect Bilirubin 0.3 mg/dl Aspartate Amino Transf (AST/SGOT) 20 IU/L Alanine Aminotransferase (ALT/SGPT) 9 IU/L Alkaline Phosphatase 112 IU/L Total Protein 8.0 g/dl Albumin 4.2 g/dl Globulin 3.80 g/dl Albumin/Globulin Ratio 1.10 Lipase 170 U/L Urine Color YELLOW Urine Clarity CLEAR Urine pH 6.0 Urine Specific [place] 1.010 Urine Ketones NEGATIVE mg/dL Urine Nitrite NEGATIVE mg/dL Urine Bilirubin NEGATIVE mg/dL Urine Urobilinogen 0.2 E.U./dL mg/dL Urine Leukocyte Esterase 2+ Ofelia/ul Urine Microscopic RBC 3 /HPF Urine Microscopic WBC 11 /HPF Urine Squamous Epithelial Cells FEW /HPF Urine Bacteria FEW /HPF Urine Mucus FEW /HPF Urine Hemoglobin NEGATIVE mg/dL Urine Glucose NEGATIVE mg/dL Urine Total Protein NEGATIVE mg/dl Procedures/MDM MEDICAL DECISION MAKING: Patient is a 63-year-old male with a past medical history of Parkinson's disease, hypertension, DM type II, presents to the ER for concerns of dysuria times 1 week. Patient denies fevers, chills, nausea, vomiting, hematuria vital signs were reviewed. Patient is afebrile. Blood work was obtained. CBC showed no evidence of systemic infection or severe anemia. CMP showed no evidence of electrolyte abnormalities, severe acidosis, alkalosis, renal failure, or liver disease. Lipase showed no evidence of acute pancreatitis. UA did show 2+ leukocyte esterase. Urine culture obtained and is pending. At this time, patient's presentation is most consistent with UTI. Differential diagnosis included but was not limited to urosepsis, electrolyte disturbances, acute coronary syndrome, AAA, mesenteric ischemia, lower lobe pneumonia, DKA, bowel perforation, cholecystitis, choledocholithiasis, ascending cholangitis, hepatic abscess, pancreatitis, PUD, gastritis, GERD, splenic rupture, diverticulitis, pyelonephritis, nephrolithiasis, appendicitis, constipation, testicular torsion, epididymitis, urethritis, or prostatitis. Patient was nontoxic, [id number] prior to discharge. PRESCRIPTIONS: Ciprofloxacin DISCHARGE: At this time, patient is stable for discharge and outpatient management. I have instructed the patient to follow-up with his/her primary care physician in 1-2 days. I have instructed the patient to promptly return to the ER at any time for any new or worsening symptoms including increased pain, nausea, vomiting, diarrhea, fever, weakness or LOC. The patient and/or family expressed understanding of and agreement with this plan. All questions were answered. Home care instructions were provided. Disclaimer: Inadvertent spelling and grammatical errors are likely due to EHR/di ctation software use and do not reflect on the overall quality of patient care. Also, please note that the electronic time recorded on this note does not necessarily reflect the actual time of the patient encounter. Departure Diagnosis: Primary Impression: UTI (urinary tract infection) Urinary tract infection type: site unspecified Hematuria presence: without hematuria Qualified Codes: N39.0 - Urinary tract infection, site not specified Condition: Fair Patient Instructions: Dysuria Referrals: DELANEY MELENDEZ MD COUNTS INCLUDE 234 BEDS AT THE [facility] YOU HAVE RECEIVED A MEDICAL SCREENING EXAM AND THE RESULTS INDICATE THAT YOU DO NOT HAVE A CONDITION THAT REQUIRES URGENT TREATMENT IN THE EMERGENCY DEPARTMENT. FURTHER EVALUATION AND TREATMENT OF YOUR CONDITION CAN WAIT UNTIL YOU ARE SEEN IN YOUR DOCTORS OFFICE WITHIN THE NEXT 1-2 DAYS. IT IS YOUR RESPONSIBILITY TO MAKE AN APPOINTMENT FOR FOLOW-UP CARE. IF YOU HAVE A PRIMARY DOCTOR --you should call your primary doctor and schedule an appointment IF YOU DO NOT HAVE A PRIMARY DOCTOR YOU CAN CALL OUR PHYSICIAN REFERRAL HOTLINE AT IF YOU CAN NOT AFFORD TO SEE A PHYSICIAN YOU CAN CHOSE FROM THE FOLLOWING [facility] [address] [facility]. [facility] [address] [facility]. [facility] [address] [facility] [facility] [address] [facility]. [facility] [address] [facility]. [facility]. [address] [facility]. [facility] YOU HAVE RECEIVED A MEDICAL SCREENING EXAM AND THE RESULTS INDICATE THAT YOU DO NOT HAVE A CONDITION THAT REQUIRES URGENT TREATMENT IN THE EMERGENCY DEPARTMENT. FURTHER EVALUATION AND TREATMENT OF YOUR CONDITION CAN WAIT UNTIL YOU ARE SEEN IN YOUR DOCTORS OFFICE WITHIN THE NEXT 1-2 DAYS. IT IS YOUR RESPONSIBILITY TO MAKE AN APPOINTMENT FOR FOLOW-UP CARE. IF YOU HAVE A PRIMARY DOCTOR --you should call your primary doctor and schedule and appointment IF YOU DO NOT HAVE A PRIMARY DOCTOR YOU CAN CALL OUR PHYSICIAN REFERRAL HOTLINE AT . IF YOU CAN NOT AFFORD TO SEE A PHYSICIAN YOU CAN CHOSE FROM THE FOLLOWING [facility] INSTITUTIONS: [facility] [address] [place] [address] [facility] [address] [place] [address] [facility] + [facility] [address] [place] [address] Additional Instructions: Call your primary care doctor/ urologist TOMORROW for an appointment during the next 1-2 days.See the doctor sooner or return here if your condition worsens before your appointment time. VINCE JACOBSON PA-C Dec 10, 2018 02:18
[2018-12-10 02:57] VITALS: BP 162/84; PULSE 75; RESP 18
== END 2018-12-10 03:00 | disposition home or self-care (01) ==
LOC: FTE 18:53
DX: N39.0 Urinary tract infection, site not specified (principal); I10 Essential (primary) hypertension; E11.9 Type 2 diabetes mellitus without complications; G20 Parkinson's disease
CPT/HCPCS: 36415; 80053; 81001; 83690; 85025; 87086; Z7502; 99283

== ENCOUNTER 2019-02-07 14:23 | Emergency (ER) | payer OTHER ==
[~2019-02-07] VITALS: Wt 122.0 kg
[2019-02-07 14:32] VITALS: BP 120/68; PULSE 83; RESP 20
[2019-02-07] MEDS ORDERED: AZIT250T PO (16:08)
[2019-02-07] MEDS ORDERED: IBUP-1542 PO (16:08)
[2019-02-07] MEDS ORDERED: BENZ200C68 PO (16:08)
[2019-02-07] MEDS ORDERED: ALBU18HF INHALATION (16:08)
[2019-02-07] MEDS ORDERED: D-ME473S2 PO (17:15)
--- NOTE | 2019-02-08 02:27 | ERD ---
ER Documentation Chief Complaint Chief Complaint PRODUCTIVE COUGH FOR THE PAST 2 DAYS. NO DISTRESS. NO FEVERS HPI 64-year-old male presenting to the emergency department complaining of inte rmittent productive cough for the past 3 days. He reports yellow phlegm. Symptoms are worse at night. He took no medication for relief of symptoms. Additionally, the patient reports pain to the plantar surface of his right foot which is worse when waking in the morning and taking his first steps. He denies fevers, sore throat, nasal congestion, or other symptoms at this time. ROS All systems reviewed and are negative except as per history of present illness. Medications Home Meds Active Scripts Dextromethorphan Hb-Promethazine Hcl* (Promethazine DM* Syrup) 473 Ml Syrup, 5 M L PO Q6 PRN for COUGH, #120 ML Prov:MINO NAJERA PA-C 02/07/19 Ibuprofen* (Motrin*) 600 Mg Tab, 600 MG PO Q6, #30 TAB Prov:MINO NAJERA PA-C 02/07/19 Albuterol Sulfate* (Ventolin HFA*) 18 Gm Hfa.aer.ad, 2 PUFF INHALATION Q4H, #1 INHALER Prov:MINO NAJERA PA-C 02/07/19 Benzonatate* (Benzonatate*) 200 Mg Capsule, 200 MG PO TID PRN for COUGH, #20 CAP Prov:MINO NAJERA PA-C 02/07/19 Azithromycin* (Zithromax*) 250 Mg Tablet, 250 MG PO .ZPACK DIRECTED, #6 TAB TAKE 500 MG (2 TABS) THE FIRST DAY THEN 250 MG (1 TAB) DAYS 2-5 Prov:MINO NAJERA PA-C 02/07/19 Ciprofloxacin Hcl* (Ciprofloxacin Hcl*) 500 Mg Tablet, 500 MG PO BID for 10 Days, TAB Prov:VINCE JACOBSON PA-C 12/10/18 Metronidazole* (Flagyl*) 500 Mg Tablet, 500 MG PO TID for 10 Days, TAB Prov:MELISSA RAMAN PA-C 10/18/18 Sulfamethoxazole/Trimethoprim* (Bactrim Ds* Tablet) 1 Each Tablet, 1 TAB PO DAILY for 10 Days, TAB Prov:MELISSA RAMAN PA-C 10/18/18 Nitrofurantoin Monohyd Macrocr* (Macrobid*) 100 Mg Capsr, 100 MG PO BID for 14 Days, CAP Prov:RADHA BOATENG MD 03/06/18 Cephalexin* (Keflex*) 500 Mg Capsule, 500 MG PO QID for 14 Days, CAP Prov:DAIANA JARA MD 01/29/18 Ibuprofen* (Motrin*) 600 Mg Tab, 600 MG PO Q6H PRN for PAIN AND OR ELEVATED TEMP, #30 TAB Prov:ILSA BARBA NP 12/19/17 Acetaminophen* (Tylophen*) 500 Mg Capsule, 1 CAP PO Q6H PRN for PAIN AND OR ELEVATED TEMP, #20 CAP Prov:ILSA BARBA NP 12/19/17 Albuterol Sulfate* (Proair HFA*) 8.5 Gm Hfa.aer.ad, 2 PUFF INH Q4H PRN for WHEEZ ING AND SOB, #1 INHALER Prov:ILSA BARBA NP 12/19/17 Cetirizine Hcl* (Zyrtec*) 10 Mg Capsule, 10 MG PO DAILY, #30 TAB.CHEW Prov:ILSA BARBA NP 12/19/17 Azithromycin* (Zithromax*) 250 Mg Tablet, 250 MG PO DAILY for 4 Days, TAB Prov:ILSA BARBA NP 12/19/17 Benzonatate* (Tessalon Perle*) 100 Mg Capsule, 100 MG PO Q8H PRN for COUGH, #20 CAP Prov:ILSA BARBA NP 12/19/17 Ciprofloxacin Hcl* (Ciprofloxacin Hcl*) 500 Mg Tablet, 500 MG PO BID for 10 Days, TAB Prov:MELISSA RAMAN PA-C 08/02/17 Reported Medications Metformin Hcl* (Metformin Hcl*) Unknown Strength Tablet, PO WITH BREAKFAST DINNE, #60 TAB 12/19/17 Atenolol* (Atenolol*) Unknown Strength Tablet, PO DAILY, #30 TAB 12/19/17 Amlodipine Besylate* (Amlodipine Besylate*) Unknown Strength Tablet, PO DAILY, #30 TAB 12/19/17 Allergies Allergies: Coded Allergies: Iodine and Iodide Containing Produc (Verified Allergy, Unknown, 10/18/18) Penicillins (Verified Allergy, Unknown, 10/18/18) PMhx/Soc History of Surgery: Yes (APPENDECTOMY) Anesthesia Reaction: No Hx Neurological Disorder: No Hx Respiratory Disorders: No Hx Cardiac Disorders: Yes (HTN, hyperlipidemia) Hx Psychiatric Problems: No Hx Miscellaneous Medical Probl: Yes (DM, PROSTATE, Kidney stones, parkinson's) Hx Alcohol Use: No Hx Substance Use: No Hx Tobacco Use: No Smoking Status: Never smoker FmHx Family History: No diabetes Physical Exam Vitals Vital Signs Date Temp Pulse Resp B/P (MAP) Pulse Ox O2 O2 Flow FiO2 Time Delivery Rate 02/07/19 99.8 83 20 120/68 98 14:32 (85) Physical Exam Const: No acute distress Head: Atraumatic Eyes: Normal Conjunctiva ENT: Normal External Ears, Nose and Mouth. Neck: Full range of motion. No meningismus. Resp: Mild inspiratory rhonchi noted to bilateral upper lung love. Shallow inspiratory effort. No crackles. No respiratory distress. Cardio: Regular rate and rhythm, no murmurs Skin: No petechiae or rashes Back: No midline or flank tenderness Ext: No cyanosis, or edema Neur: Awake and alert Psych: Normal Mood and Affect Procedures/MDM 64-year-old male presenting to the emergency department with signs and symptoms most consistent with acute bronchitis and plantar fasciitis of the right lower extremity. Patient is stable and appropriate for outpatient management with prescriptions. No evidence to suggest sepsis, pneumonia, meningitis, fracture, or other emergencies. Patient was in agreement with the diagnosis, plan, need for follow-up, return precautions. He is nontoxic and well-appearing and afebrile. No evidence of life-threatening pathology at time of discharge. Pt/family in agreement with discharge plan/diagnosis. Pt/family advised to return immediately with any new or worsening symptoms. Follow-up with primary care physician within the next 1-2 days. Departure Diagnosis: Primary Impression: Acute bronchitis Additional Impression: Right foot pain Condition: Fair Patient Instructions: What Is Plantar Fasciitis?, Bronchitis, Antiobiotic Treatment (Adult), Plantar Fasciitis Additional Instructions: Call your primary care doctor TOMORROW for an appointment during the next 1-2 days.See the doctor sooner or return here if your condition worsens before your appointment time. MINO NAJERA PA-C Feb 08, 2019 02:27
== END 2019-02-07 16:42 | disposition home or self-care (01) ==
LOC: FTE 14:23
DX: J20.9 Acute bronchitis, unspecified (principal); M79.671 Pain in right foot; E11.9 Type 2 diabetes mellitus without complications; I10 Essential (primary) hypertension; Z79.84 Long term (current) use of oral hypoglycemic drugs
CPT/HCPCS: 99283

== ENCOUNTER 2019-05-16 15:44 | Emergency (ER) | payer OTHER ==
[~2019-05-16] VITALS: Ht 162.6 cm; Wt 90.0 kg
[~2019-05-16 15:44] MED LIST changes: +ALBU18HF INHALATION; +ASPI-817 PO; +ATEN50TA PO; +BENA40TA56 PO; +BENZ200C68 PO; +CARB1TAB34 PO; +CEFD300C2 PO; +CHLO25TA2 PO; +D-ME473S2 PO; +ERGO500013 PO; +FER325 PO; +FINA5TAB4 PO; +NITR0.4T32 SL; +PRAM0.25 PO; +RIVA20TA5 PO; +TAMS-14 PO
[2019-05-16 15:48] VITALS: Ht 162.6 cm; Wt 90.0 kg
[2019-05-16] MEDS ORDERED: CEFTRIAXONE 1 GM INJ IM ONE (18:30)
[2019-05-16] MEDS ORDERED: LIDOCAINE 1% (MDV) 20 ML INJ SC ONE (18:30)
[2019-05-16 18:50] VITALS: BP 146/78; PULSE 76; RESP 20
--- NOTE | 2019-05-19 13:33 | ERD ---
ER Documentation Chief Complaint Chief Complaint DYSURIA X 4 DAYS HPI This is a 64-year-old male presenting to the emergency department complaining of intermittent dysuria for the past 4 days. He has had burning on urination for 5 days. Reports history of chronic UTI, hypertension, type 2 diabetes. Symptoms are currently moderate in severity. No other symptoms reported at this time. ROS All systems reviewed and are negative except as per history of present illness. Medications Home Meds Active Scripts Cefdinir (Cefdinir) 300 Mg Capsule, 300 MG PO BID, #20 CAP Prov:MINO NAJERA PA-C 05/16/19 Dextromethorphan Hb-Promethazine Hcl* (Promethazine DM* Syrup) 473 Ml Syrup, 5 ML PO Q6 PRN for COUGH, #120 ML Prov:MINO NAJERA PA-C 02/07/19 Ibuprofen* (Motrin*) 600 Mg Tab, 600 MG PO Q6, #30 TAB Prov:MINO NAJERA PA-C 02/07/19 Albuterol Sulfate* (Ventolin HFA*) 18 Gm Hfa.aer.ad, 2 PUFF INHALATION Q4H, #1 INHALER Prov:MINO NAJERA PA-C 02/07/19 Benzonatate* (Benzonatate*) 200 Mg Capsule, 200 MG PO TID PRN for COUGH, #20 CAP Prov:MINO NAJERA PA-C 02/07/19 Azithromycin* (Zithromax*) 250 Mg Tablet, 250 MG PO .ZPACK DIRECTED, #6 TAB TAKE 500 MG (2 TABS) THE FIRST DAY THEN 250 MG (1 TAB) DAYS 2-5 Prov:MINO NAJERA PA-C 02/07/19 Ciprofloxacin Hcl* (Ciprofloxacin Hcl*) 500 Mg Tablet, 500 MG PO BID for 10 Days, TAB Prov:VINCE JACOBSON PA-C 12/10/18 Metronidazole* (Flagyl*) 500 Mg Tablet, 500 MG PO TID for 10 Days, TAB Prov:MELISSA RAMAN PA-C 10/18/18 Sulfamethoxazole/Trimethoprim* (Bactrim Ds* Tablet) 1 Each Tablet, 1 TAB PO DAILY for 10 Days, TAB Prov:MELISSA RAMAN PA-C 10/18/18 Nitrofurantoin Monohyd Macrocr* (Macrobid*) 100 Mg Capsr, 100 MG PO BID for 14 Days, CAP Prov:RADHA BOATENG MD 03/06/18 Cephalexin* (Keflex*) 500 Mg Capsule, 500 MG PO QID for 14 Days, CAP Prov:DAIANA JARA MD 01/29/18 Ibuprofen* (Motrin*) 600 Mg Tab, 600 MG PO Q6H PRN for PAIN AND OR ELEVATED TEMP, #30 TAB Prov:ILSA BARBA NP 12/19/17 Acetaminophen* (Tylophen*) 500 Mg Capsule, 1 CAP PO Q6H PRN for PAIN AND OR ELEVATED TEMP, #20 CAP Prov:ILSA BARBA NP 12/19/17 Albuterol Sulfate* (Proair HFA*) 8.5 Gm Hfa.aer.ad, 2 PUFF INH Q4H PRN for WHEEZING AND SOB, #1 INHALER Prov:ILSA BARBA NP 12/19/17 Cetirizine Hcl* (Zyrtec*) 10 Mg Capsule, 10 MG PO DAILY, #30 TAB.CHEW Prov:ILSA BARBA NP 12/19/17 Azithromycin* (Zithromax*) 250 Mg Tablet, 250 MG PO DAILY for 4 Days, TAB Prov:ILSA BARBA NP 12/19/17 Benzonatate* (Tessalon Perle*) 100 Mg Capsule, 100 MG PO Q8H PRN for COUGH, #20 CAP Prov:ILSA BARBA NP 12/19/17 Ciprofloxacin Hcl* (Ciprofloxacin Hcl*) 500 Mg Tablet, 500 MG PO BID for 10 Days, TAB Prov:MELISSA RAMAN PA-C 08/02/17 Reported Medications Metformin Hcl* (Metformin Hcl*) Unknown Strength Tablet, PO WITH BREAKFAST DINNE, #60 TAB 12/19/17 Atenolol* (Atenolol*) Unknown Strength Tablet, PO DAILY, #30 TAB 12/19/17 Amlodipine Besylate* (Amlodipine Besylate*) Unknown Strength Tablet, PO DAILY, #30 TAB 12/19/17 Allergies Allergies: Coded Allergies: Iodine and Iodide Containing Produc (Verified Allergy, Unknown, 10/18/18) Penicillins (Verified Allergy, Unknown, 10/18/18) PMhx/Soc History of Surgery: Yes (APPENDECTOMY) Anesthesia Reaction: No Hx Neurological Disorder: No Hx Respiratory Disorders: No Hx Cardiac Disorders: Yes (HTN, hyperlipidemia) Hx Psychiatric Problems: No Hx Miscellaneous Medical Probl: Yes (DM, PROSTATE, Kidney stones, parkinson's) Hx Alcohol Use: No Hx Substance Use: No Hx Tobacco Use: No Smoking Status: Never smoker FmHx Family History: No diabetes Physical Exam Vitals Vital Signs Date Temp Pulse Resp B/P (MAP) Pulse Ox O2 O2 Flow FiO2 Time Delivery Rate 05/16/19 98.6 76 20 146/78 99 Room Air 18:50 (100) 05/16/19 98.5 72 18 161/75 99 15:48 (103) Physical Exam Const: No acute distress Head: Atraumatic Eyes: Normal Conjunctiva ENT: Normal External Ears, Nose and Mouth. Neck: Full range of motion. No meningismus. Resp: Clear to auscultation bilaterally Cardio: Regular rate and rhythm, no murmurs Abd: Soft, non tender, non distended. Normal bowel sounds Skin: No petechiae or rashes Back: No midline or flank tenderness Ext: No cyanosis, or edema Neur: Awake and alert Psych: Normal Mood and Affect Result Diagram: 05/16/19 1718 05/16/19 1718 Results 24 hrs Laboratory Tests Test 05/16/19 17:18 White Blood Count 14.1 10^3/ul Red Blood Count 4.31 10^6/ul Hemoglobin 13.2 g/dl Hematocrit 41.0 % Mean Corpuscular Volume 95.1 fl Mean Corpuscular Hemoglobin 30.6 pg Mean Corpuscular Hemoglobin Concent 32.2 g/dl Red Cell Distribution Width 12.6 % Platelet Count 357 10^3/UL Mean Platelet Volume 10.0 fl Immature Granulocytes % 0.500 % Neutrophils % 68.2 % Lymphocytes % 17.2 % Monocytes % 11.0 % Eosinophils % 2.7 % Basophils % 0.4 % Nucleated Red Blood Cells % 0.0 /100WBC Immature Granulocytes # 0.070 10^3/ul Neutrophils # 9.6 10^3/ul Lymphocytes # 2.4 10^3/ul Monocytes # 1.5 10^3/ul Eosinophils # 0.4 10^3/ul Basophils # 0.1 10^3/ul Nucleated Red Blood Cells # 0.0 10^3/ul Urine Color YELLOW Urine Clarity CLEAR Urine pH 7.0 Urine Specific [place] 1.017 Urine Ketones TRACE mg/dL Urine Nitrite NEGATIVE mg/dL Urine Bilirubin NEGATIVE mg/dL Urine Urobilinogen NEGATIVE mg/dL Urine Leukocyte Esterase 2+ Ofelia/ul Urine Microscopic RBC 12 /HPF Urine Microscopic WBC 40 /HPF Urine Bacteria FEW /HPF Urine Yeast (Budding) FEW /HPF Urine Hemoglobin 1+ mg/dL Urine Glucose NEGATIVE mg/dL Urine Total Protein 1+ mg/dl Sodium Level 140 mmol/L Potassium Level 4.4 mmol/L Chloride Level 104 mmol/L Carbon Dioxide Level 29 mmol/L Anion Gap 7 Blood Urea Nitrogen 11 mg/dl Creatinine 0.75 mg/dl Est Glomerular Filtrat Rate mL/min > 60 mL/min Glucose Level 118 mg/dl Calcium Level 9.3 mg/dl Total Bilirubin 0.3 mg/dl Direct Bilirubin 0.00 mg/dl Indirect Bilirubin 0.3 mg/dl Aspartate Amino Transf (AST/SGOT) 18 IU/L Alanine Aminotransferase (ALT/SGPT) < 6 IU/L Alkaline Phosphatase 113 IU/L Total Protein 7.7 g/dl Albumin 4.2 g/dl Globulin 3.50 g/dl Albumin/Globulin Ratio 1.20 Current Medications Medications Dose Sig/Nadya Start Time Status Last (Trade) Ordered Route PRN Stop Time Admin Dose Reason Admin Ceftriaxone 1 gm ONCE ONCE 05/16/19 DC 05/16/19 Sodium IM 18:30 05/16/19 18:31 (Rocephin) 18:31 Lidocaine 20 ml ONCE ONCE 05/16/19 DC 05/16/19 (Xylocaine SC 18:30 05/16/19 18:32 1% (Mdv) 20 18:31 ml) Procedures/MDM 64-year-old male presents to the emergency department complaining of intermittent dysuria. Urinalysis in the department was consistent with urinary tract infection. Patient is nontoxic and well-appearing with stable vital signs. I doubt sepsis, serious bacterial infection, pyelonephritis, ascending infection, or other emergent process. I did discuss his case with attending ED physician, Dr. Filiberto Alonso who is in agreement with the assessment and plan bi otics after administration of Rocephin in the department. I did review the urine culture results patient will be given a prescription for Ceftin ear. He does have close follow-up appointment with urologist. He was also advised to follow-up with his primary care physician and return to the emergency department immediately for any new or concerning symptoms. I shared my medical decision making with the patient and he understands and agrees with the plan. Patient's blood pressure was elevated (>120/80) but appears stable without evidence of hypertension emergency or urgency. The patient is to follow-up and pursue outpatient monitoring and therapy with their primary care physician within 1 week and return immediately if they have any new, worsening, or concerning symptoms. Departure Diagnosis: Primary Impression: Dysuria Condition: Fair Patient Instructions: Understanding Urinary Tract Infections (UTIs) Referrals: [facility] YOU HAVE RECEIVED A MEDICAL SCREENING EXAM AND THE RESULTS INDICATE THAT YOU DO NOT HAVE A CONDITION THAT REQUIRES URGENT TREATMENT IN THE EMERGENCY DEPARTMENT. FURTHER EVALUATION AND TREATMENT OF YOUR CONDITION CAN WAIT UNTIL YOU ARE SEEN IN YOUR DOCTORS OFFICE WITHIN THE NEXT 1-2 DAYS. IT IS YOUR RESPONSIBILITY TO MAKE AN APPOINTMENT FOR FOLOW-UP CARE. IF YOU HAVE A PRIMARY DOCTOR --you should call your primary doctor and schedule an appointment IF YOU DO NOT HAVE A PRIMARY DOCTOR YOU CAN CALL OUR PHYSICIAN REFERRAL HOTLINE AT IF YOU CAN NOT AFFORD TO SEE A PHYSICIAN YOU CAN CHOSE FROM THE FOLLOWING [facility] [id number] [facility]. [facility] [address] [facility] [facility] [address] [facility] [facility] [address] [facility]. [facility] [address] [facility]. [facility]. [address] Additional Instructions: Call your primary care doctor TOMORROW for an appointment during the next 1-2 days.See the doctor sooner or return here if your condition worsens before your appointment time. MINO NAJERA PA-C May 19, 2019 13:33
== END 2019-05-16 18:51 | disposition home or self-care (01) ==
LOC: FTE 15:44
DX: R30.0 Dysuria (principal); E11.9 Type 2 diabetes mellitus without complications; I10 Essential (primary) hypertension; G20 Parkinson's disease; Z79.84 Long term (current) use of oral hypoglycemic drugs
CPT/HCPCS: 80053; 81001; 85025; 87086; 96372; J0696; Z7502; Z7610

== ENCOUNTER 2019-06-04 17:35 | Emergency (ER) | payer OTHER ==
[~2019-06-04] VITALS: Ht 167.6 cm; Wt 121.0 kg
[2019-06-04 17:51] VITALS: Ht 167.6 cm; Wt 121.0 kg
[2019-06-04 20:20] VITALS: BP 152/83; PULSE 77; RESP 18
== END 2019-06-04 20:25 | disposition home or self-care (01) ==
LOC: E/R 17:35
DX: R06.00 Dyspnea, unspecified (principal); D64.9 Anemia, unspecified; E11.9 Type 2 diabetes mellitus without complications; I10 Essential (primary) hypertension; Z79.82 Long term (current) use of aspirin; Z79.84 Long term (current) use of oral hypoglycemic drugs
CPT/HCPCS: 36415; 71045; 80053; 83880; 84484; 85025; 85378; 85610; 85730; 93005; Z7502